=== PATIENT | female | born 1990 | race African-American/Black ===

== ENCOUNTER 2018-12-13 00:34 | Emergency (ER) | payer MEDICAID ==
[~2018-12-13] VITALS: Ht 165.1 cm; Wt 74.4 kg
[2018-12-13 02:58] VITALS: BP 144/71
[2018-12-13] MEDS ORDERED: KETOROLAC TROMETHAMINE INJ 60 MG/2 ML VIAL IM ONE ×2 (05:00→05:05)
== END 2018-12-13 05:15 | disposition home or self-care (01) ==
LOC: ER 00:37
DX: M54.6 Pain in thoracic spine (principal); M25.512 Pain in left shoulder
CPT/HCPCS: 72074-TC; J1885